=== PATIENT | female | born 1960 | race Caucasian/White ===

== ENCOUNTER 2017-10-25 11:21 | Emergency (ER) | payer MEDICARE ==
--- NOTE | 2017-10-25 12:36 | RAD ---
RIGHT FOOT THREE VIEWS: History: Right foot pain. FINDINGS/IMPRESSION: No acute fracture, dislocation, or bony destruction is identified. A small plantar calcaneal spur is present. POS: [facility]
== END 2017-10-25 14:08 | disposition home or self-care (01) ==
LOC: ERS 11:21
DX: S93.601A Unspecified sprain of right foot, initial encounter (principal)

== ENCOUNTER 2020-02-14 10:22 | Outpatient (CLI) | payer MEDICARE, OTHER ==
--- NOTE | 2020-02-14 11:18 | CT ---
CT CHEST WITH CONTRAST CLINICAL INDICATION: Shortness of breath. COMPARISON: None FINDINGS: Aorta: Vascular calcifications are seen in the aortic arch. The thoracic aorta is normal in caliber w ithout evidence of an aortic dissection. Minimal coronary artery calcifications are visualized. Lungs: Linear scar versus atelectasis seen in the superior segment left lower lobe with atelectasis p resent in the lingula. There is ectasia of a single bronchus in the medial aspect of the right middle lobe with adjacent minimal linear scarring. No consolidation, pleural fluid, or discrete pulmo nary nodule is seen in the lungs bilaterally. Mediastinum: No enlarged lymph nodes are seen by CT size criteria. Calcified left hilar lymph node is seen. Thyroid gland: Normal in appearance where imaged. Osseous structures: Minimal scattered degenerative changes are seen in the spine. 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 Chest wall: No abnormality visualized. Upper abdomen: Calcified granuloma seen in the spleen. Colonic diverticuli seen in the hepatic and sp lenic flexure. Remainder of the visualized upper abdomen demonstrates normal CT appearance. IMPRESSION: 1. No acute findings.
== END 2020-02-14 10:23 | disposition home or self-care (01) ==
LOC: BICCT 10:22
PROVIDERS: ATTEND Internal Medicine Cardiovascular Disease
DX: R06.02 Shortness of breath (principal)
CPT/HCPCS: 71260

== ENCOUNTER 2023-03-24 10:41 | Outpatient (CLI) | payer OTHER | END 2023-03-24 10:42 | disposition home or self-care (01) | LOC: BICMAMMO 10:41 | PROVIDERS: ATTEND Family Medicine | DX: Z12.31 Encounter for screening mammogram for malignant neoplasm of breast (principal) | CPT/HCPCS: 77063; 77067 ==